=== PATIENT | female | born 1945 | race Two or more races ===

== ENCOUNTER 2019-10-30 11:03 | Emergency (ER) | payer MEDICARE ==
[~2019-10-30] VITALS: Ht 154.9 cm; Wt 60.8 kg
--- NOTE | 2019-10-30 11:30 | NUR ---
PT BROUGTH BACK FROM TRIAGE WITH CHIEF COMPLAINT OF dizzy for 3 days, a-fib yesterday. PT WAS WEARING MONITOR ONE WEEK AGO, REPORTED 3-4 SEC PAUSE AND ADVISED TO SOME TO ED HOWEVER DIDNT. PT DENIES CP, SOB, FEVER, COUGH, N/V. pt on xarelto.
[2019-10-30] MEDS ORDERED: RIVA20TA PO (11:36)
[2019-10-30] MEDS ORDERED: LISI-167 PO (11:36)
[2019-10-30] MEDS ORDERED: ATOR10TA9 PO (11:36)
[2019-10-30] MEDS ORDERED: FLEC50TA25 PO (11:36)
[2019-10-30] MEDS ORDERED: METF500T17 PO (11:37)
[2019-10-30 12:02] LABS: BASOPHILS # (AUTO) 0.03 x10^3/uL (0-0.1); BASOPHILS % (AUTO) 1 % (0-1); EOSINOPHILS # (AUTO) 0.13 x10^3/uL (0-0.4); EOSINOPHILS % (AUTO) 2 % (1-7); LYMPHOCYTES # (AUTO) 1.64 x10^3/uL (1-3.4); LYMPHOCYTES % (AUTO) 27 % (22-44); MD NO; MEAN CORPUSCULAR HEMOGLOBIN 30.3 pg (27.0-34.8); MEAN CORPUSCULAR VOLUME 91.9 fL (80-100); MEAN PLATELET VOLUME 8.6 fL (7.4-10.4); MONOCYTES # (AUTO) 0.37 x10^3/uL (0.2-0.8); MONOCYTES % (AUTO) 6 % (2-9); NEUTROPHILS # (AUTO) 3.89 x10^3/uL (1.8-6.8); NEUTROPHILS % (AUTO) 64 % (42-75); PLATELET COUNT 163 x10^3/uL (130-400); RED BLOOD COUNT 4.49 x10^6/uL (3.82-5.3); RED CELL DISTRIBUTION WIDTH 13.5 % (9.6-15.2)
[2019-10-30 12:10] LABS: INTERNATIONAL NORMALIZED RATIO 0.93 (0.93-1.1); PROTHROMBIN TIME 9.9 Seconds (9.6-11.5)
[2019-10-30 12:13] LABS: ALBUMIN 3.2 g/dL (3.4-5.0); ANION GAP 3 mmol/L (5-15); CALCIUM 8.5 mg/dL (8.5-10.1); CHLORIDE 108 mmol/L (98-107); CREATININE 0.98 mg/dL (0.55-1.02)
[2019-10-30 12:17] LABS: TROPONIN I < 0.015 ng/mL (0.000-0.045)
--- NOTE | 2019-10-30 12:23 | NUR ---
RESTING IN BED, CALL LIGHT IN REACH
--- NOTE | 2019-10-30 12:28 | NUR ---
Thalia arciniega in [facility] - 10/30/19 at 1229 by [email or web address] REPORT CALLED TO LEILANI ARREDONDO
--- NOTE | 2019-10-30 13:03 | NUR ---
PT RESTINGIN BED, CALL LIGHT IN REACH
[2019-10-30 13:08] VITALS: BP 139/68
--- NOTE | 2019-10-30 14:02 | NUR ---
CUAUHTEMOC COLES AT BEDSIDE TO DISCUSS POC
--- NOTE | 2019-10-30 14:12 | NUR ---
DISCHARGE INSTRUCTIONS REVIEWED
== END 2019-10-30 14:37 | disposition home or self-care (01) ==
LOC: ED 11:30
DX: R42 Dizziness and giddiness (principal); E78.00 Pure hypercholesterolemia, unspecified; I10 Essential (primary) hypertension; E11.9 Type 2 diabetes mellitus without complications; I48.91 Unspecified atrial fibrillation; I49.9 Cardiac arrhythmia, unspecified; R94.31 Abnormal electrocardiogram [ECG] [EKG]
CPT/HCPCS: 36415; 71045; 80048; 82040; 84484; 85025; 85610; 85730; 93005; 99285

== ENCOUNTER → 2020-04-18 | Outpatient (CLI) | payer MEDICARE ==
[~2020-04-18] MED LIST: ATOR10TA9 PO; FLEC50TA25 PO; LISI-167 PO; METF500T17 PO; RIVA20TA PO
== END | disposition home or self-care (01) ==
LOC: CVU 14:46
PROVIDERS: ATTEND Internal Medicine Cardiovascular Disease
DX: I35.8 Other nonrheumatic aortic valve disorders (principal); I11.9 Hypertensive heart disease without heart failure; R42 Dizziness and giddiness; I48.0 Paroxysmal atrial fibrillation
CPT/HCPCS: 93306

== ENCOUNTER 2021-04-18 08:04 | Outpatient (CLI) | payer MEDICARE ==
[~2021-04-18 08:04] MED LIST changes: +ACET325T26 PO; +APIX5TAB PO; +DRON400T6 PO; +GLIM1TAB PO; +SOTA80TA18 PO
[2021-04-18] MEDS ORDERED: REGADENOSON 0.4 MG/5 ML SYRINGE ONE (11:38)
== END 2021-04-18 23:59 | disposition home or self-care (01) ==
LOC: CFH 08:04
PROVIDERS: ATTEND Internal Medicine Cardiovascular Disease
DX: I10 Essential (primary) hypertension (principal); R07.89 Other chest pain
CPT/HCPCS: 78452; 93017; A9502; J2785